=== PATIENT | male | born 1985 | race Two or more races ===

== ENCOUNTER 2025-09-09 09:29 | Outpatient (CLI) | payer BC ==
[2025-09-09 10:03] LABS: Urine Protein, UAD Negative (Negative)
[2025-09-09 10:13] LABS: Hematocrit 46.7 % (41.0-53.0); Hemoglobin 16.4 g/dL (13.5-17.5); Mean Corpuscular Hemoglobin 32.8 pg (28.0-32.0); Mean Corpuscular Volume 93.5 fL (80.0-100.0); Nucleated Red Blood Cells % 0.1 %
[2025-09-09 10:23] LABS: Alkaline Phosphatase 104 U/L (46-116); Anion Gap 9 (5-15); BUN/Creatinine Ratio 8.7 (10.0-20.0); Blood Urea Nitrogen 9 mg/dL (9-23); Calcium 9.9 mg/dL (8.7-10.4); Carbon Dioxide 29 mmol/L (20-31); Chloride 102 mmol/L (98-107); Glucose 94 mg/dL (74-106); Potassium 4.2 mmol/L (3.5-5.1); Sodium 140 mmol/L (136-145)
[2025-09-09 10:24] LABS: Alanine Aminotransferase 66 U/L (7-40); Albumin 4.9 g/dL (3.2-4.8); Bilirubin, Total 1.1 mg/dL (0.2-1.0); Cholesterol 246 mg/dL (< 200); HDL Cholesterol 43 mg/dL (40-59); Total Protein 8.3 g/dL (5.7-8.2); Triglycerides 226 mg/dL (< 150)
== END 2025-09-09 17:00 | disposition home or self-care (01) ==
LOC: LAB 09:29
PROVIDERS: ATTEND Internal Medicine
DX: E66.9 Obesity, unspecified (principal); Z00.00 Encounter for general adult medical examination without abnormal findings
CPT/HCPCS: 36415; 80053; 80061; 81001; 83036; 84443; 85025